=== PATIENT | female | born 1990 | race Two or more races ===

== ENCOUNTER 2018-12-10 10:53 | Outpatient (CLI) | payer MEDICAID ==
[~2018-12-10] VITALS: Ht 154.9 cm; Wt 101.4 kg
[2018-12-24] MEDS ORDERED: METF500T17 PO (15:35)
[2018-12-24] MEDS ORDERED: INSU100V5 SQ-INSULIN (15:37)
[2018-12-24] MEDS ORDERED: INSU100I43 SQ (15:38)
[2018-12-24] MEDS ORDERED: PREN1TAB10 PO (15:40)
[2018-12-28] MEDS ORDERED: IBUP-1222 PO (19:01)
[2018-12-28] MEDS ORDERED: OXYC-302 PO (19:01)
== END 2018-12-10 12:25 | disposition home or self-care (01) ==
LOC: LDOP 10:53
PROVIDERS: ATTEND Obstetrics & Gynecology
DX: Z34.93 Encounter for supervision of normal pregnancy, unspecified, third trimester (principal); Z3A.34 34 weeks gestation of pregnancy
CPT/HCPCS: 59025; 99211; G0463

== ENCOUNTER 2018-12-17 08:08 | Outpatient (CLI) | payer MEDICAID ==
[~2018-12-17] VITALS: Ht 154.9 cm; Wt 103.6 kg
[2018-12-17 08:15] VITALS: BP 118/68
[2018-12-24] MEDS ORDERED: METF500T17 PO (15:35)
[2018-12-24] MEDS ORDERED: INSU100V5 SQ-INSULIN (15:37)
[2018-12-24] MEDS ORDERED: INSU100I43 SQ (15:38)
[2018-12-24] MEDS ORDERED: PREN1TAB10 PO (15:40)
[2018-12-28] MEDS ORDERED: OXYC-302 PO (19:01)
[2018-12-28] MEDS ORDERED: IBUP-1222 PO (19:01)
== END 2018-12-17 09:20 | disposition home or self-care (01) ==
LOC: LDOP 08:08
PROVIDERS: ATTEND Obstetrics & Gynecology
DX: Z34.93 Encounter for supervision of normal pregnancy, unspecified, third trimester (principal); Z3A.36 36 weeks gestation of pregnancy
CPT/HCPCS: 59025; 99211; G0463

== ENCOUNTER 2018-12-24 08:38 | Inpatient (IN) | payer OTHER, MEDICAID ==
[~2018-12-24] VITALS: Ht 154.9 cm; Wt 105.9 kg
[2018-12-28 19:15] VITALS: BP 138/87
== END 2018-12-28 20:00 | disposition home or self-care (01) | DRG 783 ==
LOC: LDOP 08:38 → LDIP 09:51 → 2NW 15:11
PROVIDERS: ADMIT Obstetrics & Gynecology; ATTEND Obstetrics & Gynecology
PROC: 10D00Z1 Extraction of Products of Conception, Low, Open Approach (ICD-10-PCS; principal; 2018-12-24)
PROC: 0UB70ZZ Excision of Bilateral Fallopian Tubes, Open Approach (ICD-10-PCS; 2018-12-24)
DX: O34.211 Maternal care for low transverse scar from previous cesarean delivery (principal); O24.12 Pre-existing type 2 diabetes mellitus, in childbirth; Z37.0 Single live birth; Z3A.36 36 weeks gestation of pregnancy; Z88.0 Allergy status to penicillin; Z83.3 Family history of diabetes mellitus; Z82.49 Family history of ischemic heart disease and other diseases of the circulatory system; Z30.2 Encounter for sterilization; K66.0 Peritoneal adhesions (postprocedural) (postinfection); O99.62 Diseases of the digestive system complicating childbirth; E11.9 Type 2 diabetes mellitus without complications
CPT/HCPCS: 36415; 80053; 82962; 84112; 85025; 86850; 86900; 86923; 88302; 90715; G0378; J0690; J1100; J1170; J1885; J2405; J3010; J2370; J2590; J2765; J7120